=== PATIENT | female | born 1980 | race Caucasian/White ===

== ENCOUNTER 2017-12-25 21:04 | Emergency (ER) | payer MEDICAID, SELFPAY ==
[2017-12-25 21:06] VITALS: BP 118/81; PULSE 100; RESP 20; TEMP 37; O2SAT 97; BMI 33.9
[2017-12-25 21:32] VITALS: BP 115/80; PULSE 98; RESP 14; O2SAT 99
[2017-12-25] MEDS: DiphenhydrAMINE 50 MG/ML Syringe IV (22:18)
[2017-12-25] MEDS: Ketorolac 30 MG/ML Syringe IV (22:18)
[2017-12-25] MEDS: Metoclopramide 10 MG/2 ML Vial IV (22:18)
[2017-12-25] MEDS: 0.9% Normal Saline 1,000 ML 999 ML IV (22:18)
--- NOTE | 2017-12-25 23:16 | ED.VISSUMM ---
- ER Visit Summary Date of Service: 12/25/17 Chief Complaint: Headache History of Present Illness: The patient is a 37 F with no primary care physician. She reports she has a headache on right side of her head that began this morning. Is gradually gotten worse. It is a throbbing pain. Senna 10 worsening 7-10 currently. Is worsened by lites. She relieved by nothing. She has been nausea and vomited 4 times. No blood or emesis. States that she has had similar headaches in the past. Physical Examination: Vitals: Stable. Afebrile. General: Well-nourished and well-developed. Head: Normocephalic atraumatic. Neck: Supple, no lymphadenopathy. No JVD. Nontender. Cardiovascular: Regular rate and rhythm. No murmurs. Respiratory: No respiratory distress. Clear to auscultation bilaterally. Abdominal: Soft, nontender, nondistended, normal bowel sounds. No guarding, rebound, or peritoneal signs. Back: Nontender. Extremities: Nontender, no edema. Skin: Normal color, no rash. Neurologic: Alert and oriented ?3. Cranial nerves II through XII are intact. Normal strength and sensation. Psych: Normal affect. Emergency Department Course and Treatment: Patient had an IV placed. She was given Toradol, Benadryl, and Reglan IV with complete resolution of her headache. She is resting comfortably. Treatment Plan: Patient will be discharged instructions to follow-up with the [facility] in 1-2 days not improving. Return to the emergency department for any worsening symptoms. Disposition: To home in improved and stable condition. Impression: 1. Migraine headache. This note was generated with [employer] dictation software. It may contain incorrect words, spelling, and punctuation that were not noted in review of the chart prior to signing ED Disposition - Plan for ED Patient: Chief Complaint: Headache Instructions: ED Headache Migraine Referrals: Yane Aburto [NON-STAFF] - 1-2 Days if not improving
[2017-12-25 23:53] VITALS: BP 148/72; PULSE 83; RESP 16; O2SAT 94
== END 2017-12-25 23:56 | disposition home or self-care (01) ==
PROVIDERS: Emergency Provider Emergency Medicine
DX: G43.909 Migraine, unspecified, not intractable, without status migrainosus (principal); Z72.0 Tobacco use
CPT/HCPCS: 96361; 96374; 96375; 99283; J7030

== ENCOUNTER 2018-11-05 09:08 | Emergency (ER) | payer SELFPAY ==
[2018-11-05 09:09] VITALS: BP 159/83; PULSE 74; RESP 18; TEMP 36.2; O2SAT 99; BMI 34.0
--- NOTE | 2018-11-05 09:20 | ED.VIS.GEN ---
History of Present Illness Chief Complaint: Eye Problem Informant: Patient Onset: Today Narrative: Awaking left eye swelling crusting this morning. No vision changes. No glasses or contacts. Intermittent headache last few days no head injuries. No fevers. No sick contacts. Denies any allergies. No foreign body sensation. No photophobia. No eye injuries. Prior similar symptoms: No Past Medical History - Allergies and Home Meds Allergies/Adverse Reactions: Allergies No Known Allergies Allergy (Verified 11/05/18 09:13) Primary Care Physician: Care Physician,No Primary [Primary Care Provider] - Smoking Status: Current every day smoker Review of Systems All systems negative except as indicated General: Denies: Chills, Fever, Sweats Eyes: Denies: Visual changes - bilaterally, Blurred vision - left, Blurred vision - right, Blurred Vision - bilaterally, Diplopia ENT: Denies: Rhinorrhea, Sore throat Cardiovascular: Denies: Chest pain, Palpitations Respiratory: Denies: Dyspnea, Cough, Dyspnea on exertion Gastrointestinal: Denies: Abdominal pain, Nausea, Vomiting, Diarrhea, Melena, Hematochezia Genitourinary: Denies: Dysuria, Hematuria, Frequency Musculoskeletal: Denies: Back pain, Extremity Pain Skin: Denies: Rash, Wounds Neurological: Denies: Headache, Weakness, Numbness Physical Exam Vital Signs/Narrative: Vital Signs Temp Pulse Resp BP Pulse Ox 11/05/18 09:09 97.2 F L 74 18 159/83 H 99 Inital Vital Signs reviewed: Yes General: Well nourished, Well developed, No Acute Distress Head: Normocephalic, Atraumatic Eyes: Perrl, EOMI, - - Left eye: Swollen upper eyelid, there is no erythema of the sclera. Pupils are equal and reactive. Visual acuity: 20/25 OD, 20/25 OS ENT: Moist mucous membranes, No rhinorrhea Neck: Supple, Nontender Cardiovascular: Regular rate, Regular rhythm, No murmurs Respiratory: No distress, CTA bilaterally, Chest nontender Abdomen: Soft, Nontender, Nondistended, Normal bowel sounds Back: Nontender, Normal Inspection Extremities: Nontender, No edema Skin: Normal color, No rash Neurological: Alert, Oriented x3, Cranial nerves II-XII grossly intact, Normal Strength, Normal Sensation Psychological: Normal affect, Normal Mood Diagnostic/Tx/Re-eval - Medical Decision Making Visual acuity performed by griseldaelf 20/25 each eye. There is no erythema of the sclera. Exam concerns for blepharitis. She will be placed on antibiotic drops. She is given ophthalmology for follow-up. ED Disposition - Plan for ED Patient: Disposition: Home or Assisted Living Diagnosis: Blepharitis, left eye Instructions: ED Inflammation Eyelid Prescriptions: Polymyxin B Sulf/Trimethoprim [Polytrim Eye Drops] 1 drop LEFT EYE TID #1 bottle Referrals: Care Physician,No Primary [Primary Care Provider] - Anthony Ogden MD [STAFF PHYSICIAN] - Additional Instructions: call today for eye doctor appointment
--- NOTE | 2018-11-05 09:41 | ED.RN ---
DISCHARGE INSTRUCTIONS GIVEN TO AND REVIEWED WITH PATIENT, PATIENT DENIES QUESTIONS OR CONCERNS AND VOICES UNDERSTANDING OF DISCHARGE INSTRUCTIONS. PT AMBULATES OUT OF ROOM WITHOUT DIFFICULTY.
== END 2018-11-05 09:42 | disposition home or self-care (01) ==
PROVIDERS: Emergency Provider Emergency Medicine
DX: H01.004 Unspecified blepharitis left upper eyelid (principal); F17.200 Nicotine dependence, unspecified, uncomplicated
CPT/HCPCS: 99282